=== PATIENT | female | born 1965 | race African-American/Black ===

== ENCOUNTER 2016-07-21 08:10 | Day surgery (SDC) | payer OTHER ==
[2016-07-20 11:16] VITALS: BMI 22.8
[2016-07-21] MEDS ORDERED: BUPIVACAINE HCL/EPINEPHRINE/PF 30 ML VIAL IJ ONE ×2 (10:36→10:38)
[2016-07-21] MEDS ORDERED: MIDAZOLAM HCL 2 MG/2 ML SINGLE DOSE VIAL ONE (11:43)
[2016-07-21] MEDS ORDERED: PROPOFOL 20 ML ONE ×2 (11:51→12:07)
--- NOTE | 2016-07-21 12:26 | DS ---
Physical Examination Vital Signs: Vital Signs Temperature 97.8 F 07/21/16 08:41 Pulse Rate 80 07/21/16 08:41 Respiratory Rate 16 07/21/16 08:41 Blood Pressure 137/93 07/21/16 08:41 O2 Sat by Pulse Oximetry (%) 100 07/21/16 08:53 Discharge Summary Reason For Visit: MEDIAL MENISCALTEAR, RIGHT KNEE Condition: Good - Instructions Diet, Activity, Other Instructions: Post Operative Instructions: Knee Arthroscopy Dr Jacinto Harrell 1. Pain following an arthroscopy is variable. Some patients will have more pain than others. You have been provided with a prescription for medication that contains a narcotic. You are not allowed to drive while on this medication. You should NOT take Tylenol (Acetaminophen) when taking the pain medication ( it will result in an overdose). Feel free to take medications such as Ibuprofen or Naprosyn in addition to the pain medicine if you do not have any problems with the NSAID class of medications. 2. You are allowed to remove the bandages and shower in 24 hours unless directed otherwise. You are not allowed to bathe or go swimming until the sutures are removed. Put band-aids on the sutures after your shower and do not put any creams or lotions over the incisions. 3. You are allowed to put all your weight on the leg and bend your knee, unless directed otherwise. 4. Apply ice to the knee for 15 min every hour or so. You may continue this for as many days as you like. 5. Please call the office to schedule a visit to have your sutures removed. 6. If for any reason you believe you may have an infection or are concerned, please feel free to call me. I can be reached through our office number 24 hours a day. 7. Please call our office with any questions; we will review the surgical findings during your post operative visit. Disposition: HOME - Home Medications Comprehensive Discharge Medication List: Ambulatory Orders Metoprolol Succinate [Toprol Xl -] 12.5 mg PO BID 07/20/16
--- NOTE | 2016-07-21 12:26 | OP ---
Operative Note - Note: Operative Date: 07/21/16 Pre-Operative Diagnosis: right knee MMT Operation: RKA, PMM Post-Operative Diagnosis: Same as Pre-op Surgeon: Jacinto Harrell Anesthesiologist/HOSPITALITY WORKERS: Rocky Peres Anesthesia: Local Operative Report Dictated: Yes
[2016-07-21 13:10] VITALS: TEMP 98
[2016-07-21 13:35] VITALS: BP 113/74; PULSE 68
[2016-07-21] MEDS ORDERED: ONDANSETRON 4 MG/2 ML VIAL IVPUSH PRN (14:05)
[2016-07-21] MEDS ORDERED: ACETAMINOPHEN 325 MG TABLET (FP) PO PRN (14:05)
[2016-07-21] MEDS ORDERED: oxyCODONE HCL 5 MG TABLET PO PRN ×2 (14:05)
[2016-07-21] MEDS ORDERED: LACTATED RINGERS SOLUTION 1,000 ML IV SCH (14:15)
--- NOTE | 2016-07-25 13:59 | PATH ---
Surgical Pathology Report Patient Name: IAN AMIN [facility]. Rec. #: [id number] /Age/Gender: 1965 (Age: 51) / F Account: [id number] Location: [facility] Taken: 07/21/2016 Received: 07/21/2016 Reported: 07/25/2016 Physicians: Jacinto Harrell M.D. Specimen(s) Received RIGHT KNEE SHAVINGS Clinical History Right knee medial meniscus tear Final Diagnosis KNEE, RIGHT, ARTHROSCOPIC SHAVING: FIBROCARTILAGE WITH MYXOID DEGENERATIVE CHANGES, ALONG WITH PORTIONS OF SYNOVIUM. Electronically Signed Gunnar Reyes M.D. Gross Description Received in formalin, labeled "right knee arthroscopy shavings," is a 3.5 x 2.3 x 0.3 cm. aggregate of leung-yellow soft tissue fragments. A pharmaceutical sales representative portion is submitted in one cassette. /07/24/201607/24/2016
== END 2016-07-21 13:40 | disposition home or self-care (01) ==
LOC: FASU 08:10
PROVIDERS: ATTEND Orthopaedic Surgery
PROC: 0SBC4ZZ Excision of Right Knee Joint, Percutaneous Endoscopic Approach (ICD-10-PCS; principal; 2016-07-21 11:59)
DX: S83.241A Other tear of medial meniscus, current injury, right knee, initial encounter (principal); X58.XXXA Exposure to other specified factors, initial encounter; Y93.9 Activity, unspecified; Y92.9 Unspecified place or not applicable
CPT/HCPCS: 84703; 88304-TC; 94760